=== PATIENT | female | born 1970 | race Caucasian/White ===

== ENCOUNTER 2022-06-19 11:33 | Day surgery (SDC) | payer BC, SELFPAY ==
[2022-06-19] VITALS (11 sets, daily range): BP systolic 121–136; BP diastolic 55–90; PULSE 70–93; RESP 14–18; TEMP 36.2–36.6; O2SAT 92–97; BMI 33.0
[2022-06-19] MEDS: SODIUM CHLORIDE 0.9 % (FLUSH) 10 ML SYRINGE IVF (11:55)
[2022-06-19] MEDS: LACTATED RINGERS 1000 ML 1,000 ML 100 ML IV (11:55)
--- NOTE | 2022-06-19 12:02 | SUR.PREOP ---
Verified patient's home covid test, results negative.
[2022-06-19] MEDS: CLINDAMYCIN 900 MG/50 ML-D5W IVPB (12:19)
[2022-06-19] MEDS: BUPIVACAINE 0.5% 30 ML INJECTION (12:30)
--- NOTE | 2022-06-19 13:24 | P.GSOP_ITS ---
Operative Note Date of procedure: 06/19/22 Pre-op diagnosis: Biliary colic Post-op diagnosis: Same Type of Procedure: Laparoscopic cholecystectomy Procedure Description: After discussing the risks and benefits of the procedure, the patient signed informed consent.? The operative site was marked and the patient was brought to the operating room and placed on the operating table in supine position.? Care was taken to pad the patient's pressure points.?? The patient was then intubated by anesthesia.?? The operative site was then prepped and draped in the usual shreya rile fashion.? A time-out was then performed. Entrance to the abdomen was gained via a 5 mm Visiport in the left upper quadrant. The abdomen was insufflated and briefly surveyed for signs of injury. There was none. 11 mm umbilical port was placed as well as 2 working ports along the right costal margin. Patient was then placed in reverse Trendelenburg position with the right side up. The gallbladder fundus was grasped and retracted cephalad. The infundibulum was grasped. A combination of hook cautery and blunt dissection was used to carefully dissect out the cystic duct and artery until they could clearly be seen entering the gallbladder without any intervening structures. The gallbladder was dissected off the cystic plate to achieve the critical view. Once this was achieved the cystic duct and artery were each clipped with 2 clips proximally and 1 clip distally and transected with the scissors. On the artery there was a small area of bleeding at the distal transected end. This was controlled with a single 5 mm clip. The gallbladder was then taken off of the liver bed. And removed from the abdomen using an Endo-Catch bag. The gallbladder bed was surveyed for hemostasis. The umbilical port fascia was closed with 3 interrupted 0 Vicryl stitches via the Duglas-Goldy. the ports were then removed under direct vision. The skin was closed with absorbable subcuticular suture. Instrument sponge and needle counts were correct at the end of the case. The patient was then woken and transferred to the PACU in stable condition. ? Indications: Patient is a 52-year-old female with clinical history and workup consistent with biliary colic. I had a detailed conversation with the patient regarding the diagnosis of biliary colic. We discussed the treatment options including observation with diet modification and laparoscopic cholecystectomy. We discussed the risks of surgery (including but not limited to) the risks of bleeding, infection, injury to other structures in the abdomen including bile duct injury, bile leak and conversion to an open operation. We discussed the possibility that the patient's pain not improve with surgery. We discussed the possibility of permanent post-operative diarrhea that may require medical management. Additionally, the conceivably of complications requiring additional surgery or further hospitalization were also discussed including the risks of OK, respiratory failure, stroke and blood clots. The patient voiced an understanding of our conversation, had the opportunity to ask questions, agreed to accept the risks of surgery and asked that we proceed with surgery. Findings: Cholelithiasis Anesthesia: GETA Surgeon: Mary Murillo MD Estimated blood loss (mL): 15 Specimen: Gallbladder Condition: stable Disposition: same day
--- NOTE | 2022-06-19 13:39 | W.ANESCHARGE ---
Anesthesia Charges Start Date/Time Anesthesia Start Date: 06/19/22 Anesthesia Start Time: 12:12 Stop Date/Time Anesthesia Stop Date: 06/19/22 Anesthesia Stop Time: 13:38 Summary Emergency: No
--- NOTE | 2022-06-19 13:53 | W.ANESCHARGE ---
Anesthesia Charges Start Date/Time Anesthesia Start Date: 06/19/22 Anesthesia Start Time: 12:12 Stop Date/Time Anesthesia Stop Date: 06/19/22 Anesthesia Stop Time: 13:38 Summary Emergency: No
== END 2022-06-19 15:04 | disposition home or self-care (01) ==
PROVIDERS: PCP Family Medicine; Visit Provider Surgery
PROC: 0FT44ZZ Resection of Gallbladder, Percutaneous Endoscopic Approach (ICD-10-PCS; CPT 47562; principal; 2022-06-19 12:45)
DX: K80.20 Calculus of gallbladder without cholecystitis without obstruction (principal)
CPT/HCPCS: 47562; 00790; 88304; J1100; J1885; J2250; J2405; J2704; J2710; J3010; J3490; J7120; S0077

== ENCOUNTER 2023-08-04 13:45 | Outpatient (RCR) | payer BC, SELFPAY | END 2023-10-29 13:38 | disposition home or self-care (01) | PROVIDERS: PCP Family Medicine; Visit Provider Family Medicine | DX: M54.14 Radiculopathy, thoracic region (principal); Z51.89 Encounter for other specified aftercare | CPT/HCPCS: 97110; 97140; 97161 ==

== ENCOUNTER 2024-08-05 09:03 | Outpatient (CLI) | payer BC, SELFPAY ==
--- NOTE | 2024-08-05 10:10 | W.ANESCHARGE ---
Anesthesia Charges Start Date/Time Anesthesia Start Date: 08/05/24 Anesthesia Start Time: 10:20 Stop Date/Time Anesthesia Stop Date: 08/05/24 Anesthesia Stop Time: 10:42 Coding CPT Codes CPT Codes: GURINDER LWR INTST NDSC NOS - 74892 ([id number]) P2 - PATIENT W/MILD SYST DISEASE, QK - MANAGER SOLAR 2-4 CNCRNT ANES PROC, QX - [employer] LAW CLERK SVC W/ MD MED DIRECTION
--- NOTE | 2024-08-05 10:53 | W.ANESCHARGE ---
Anesthesia Charges Start Date/Time Anesthesia Start Date: 08/05/24 Anesthesia Start Time: 10:20 Stop Date/Time Anesthesia Stop Date: 08/05/24 Anesthesia Stop Time: 10:42 Coding CPT Codes CPT Codes: GURINDER LWR INTST NDSC NOS - 70078 ([id number]) P2 - PATIENT W/MILD SYST DISEASE, QK - RADIO INTELLIGENCE OPERATOR 2-4 CNCRNT ANES PROC, QX - CLINICAL LABORATORY SCIENCE PROFESSOR SVC W/ MD MED DIRECTION
== END 2024-08-05 09:04 | disposition home or self-care (01) ==
LOC: OP CLINIC 09:06
PROVIDERS: PCP Family Medicine; Visit Provider Internal Medicine Gastroenterology
DX: Z12.11 Encounter for screening for malignant neoplasm of colon (principal); D12.2 Benign neoplasm of ascending colon
CPT/HCPCS: 00811; 45380; 88305; J2250; J3010

== ENCOUNTER 2024-12-28 10:53 | Day surgery (SDC) | payer BC, SELFPAY ==
[2024-12-28] VITALS (13 sets, daily range): BP systolic 119–143; BP diastolic 71–84; PULSE 68–81; RESP 12–18; O2SAT 96–100; BMI 32.9
[2024-12-28] MEDS: LIDOCAINE 1% MDV INJECTION (10:56)
[2024-12-28] MEDS: ETHYL CHLORIDE 1 APPLICATION 1 APPLIC TOPICAL (11:00)
[2024-12-28] MEDS: BUPIVACAINE 0.5% 30 ML INJECTION (11:00)
--- NOTE | 2024-12-28 11:08 | SUR.PREOP ---
SAME DAY SURGERY LOCAL INJECTION SITE VERIFICATION WAS PERFORMED BY SURGEON/PA AND PATIENT PRIOR TO LOCAL ANESTHETIC BEING INJECTED TO OPERATIVE SITE.
--- NOTE | 2024-12-28 13:28 | PM.ORPRC ---
Procedure Note Date of procedure: 12/28/24 Procedure: PREOPERATIVE DIAGNOSIS: 1. Left long finger dorsal benign cyst, suspected mucous cyst POSTOPERATIVE DIAGNOSIS: 1. Left long finger dorsal benign cyst, suspected mucous cyst PROCEDURE: 1. Left long finger dorsal benign cyst open excision SURGEON: Rustam Stratton MD. PRODUCT MARKETING INTERN: Prabhjot Medrano PA-C - Of note, an regional administrative assistant was critical for this case to aid in patient positioning, tissue retraction, limb manipulation/positioning, patient safety, & closure. ANESTHESIA: Local anesthetic (50:50 mixture of 2% lidocaine plain and 0.5% marcaine plain)-digital block EBL: 10 mL IMPLANTS: None TOURNIQUET: 15 minutes digital TourniCot COMPLICATIONS: None evident INDICATIONS: The patient is a pleasant 54-year-old who has experienced left dorsal long finger recurrent mucous cyst formation over multiple months. This has been painful and is affecting her daily life. Nonoperative management has been tried but unsuccessful. Given the failure of nonoperative management, and how this affects daily life, surgery was recommended. DESCRIPTION OF PROCEDURE: Following a thorough discussion of risks, benefits, and alternatives consent was obtained and the operative extremity was marked. The patient was brought to the operating room and placed supine on the operating table. No antibiotics were administered as this was planned to be a local case only. Proper time-out was performed identifying proper patient, site, and procedure. The operative extremity was prepped and draped in the appropriate sterile fashion using ChloraPrep. The limb was exsanguinated via a tourniCot. The transverse incision was made overlying the dorsal aspect of the left long finger near the D IP joint crease and was extended distally to make an L-shaped type incision on the mid axial line. Sharp incision through the skin, and blunt dissection through subcutaneous tissue allowed us to protect crossing cyst extensor tendon structure. Thereafter, a full-thickness skin flap was elevated distally. The cyst was encountered. It was circumferentially released from the deep surface of the dermis as well as the superficial joint region. This was sent for permanent pathology. We did elevate the extensor tendon on the ulnar side by releasing some of the capsule with a 15 blade scalpel and rongeur. No significant osteophyte was encountered, but debridement of this capsule and a allowed us to debride the tissue extending to the mucous cyst itself. Thorough irrigation of normal saline was performed. At this stage, the tourniquet was released and hemostasis achieved. Closure was performed with 4-O nylon. Soft dressings were applied, and the patient was awoken/transferred to the recovery room in stable condition. PLAN: 1. Encourage elevation of the operative extremity. 2. Range of motion of the operative extremity/digits as tolerated. 3. Ibuprofen, acetaminophen and/or oxycodone as needed for pain. 4. Follow up with PA visit in 12-16 days for wound check and suture removal.
== END 2024-12-28 13:46 | disposition home or self-care (01) ==
LOC: OR 10:54
PROVIDERS: PCP Family Medicine; Visit Provider Orthopaedic Surgery Sports Medicine
PROC: (CPT 26160; principal; 2024-12-28 12:30)
DX: M67.442 Ganglion, left hand (principal)
CPT/HCPCS: 26160; J2003; J0665